=== PATIENT | female | born 1985 | race African-American/Black ===

== ENCOUNTER 2024-09-07 15:39 | Emergency (ER) | payer OTHER ==
[2024-09-07 15:54] VITALS: BP 118/83; PULSE 84; RESP 18; TEMP 98.8; BMI 27.8
[2024-09-07 17:56] LABS: BASO % 0.5 % (0-2.0); HEMATOCRIT 39.7 % (32.4-45.2); HEMOGLOBIN 13.1 GM/dL (10.7-15.3); LYMPH % 40.4 % (8-40); MCH 27.7 pg (25.7-33.7); MEAN CELL VOLUME 83.9 fl (80-96); MEAN PLT VOLUME 7.1 fl (7.5-11.1); MONO % 7.2 % (3.8-10.2); NEUT % 50.9 % (42.8-82.8); PLATELET COUNT 249 10^3/uL (134-434); RBC 4.73 M/mm3 (3.60-5.2); RDW 17.2 % (11.6-15.6); WHITE BLOOD COUNT 9.5 K/mm3 (4.0-10.0)
[2024-09-07 18:00] LABS: EPI CELLS 26 /uL (0-25.1); HYALINE CASTS 0 /uL (0-3.1); URINE APPEARANCE CLEAR; URINE BACTERIA 301 /uL (0-1359); URINE BILIRUBIN NEGATIVE (NEGATIVE); URINE COLOR YELLOW; URINE GLUCOSE (UA) NEGATIVE (NEGATIVE); URINE KETONE TRACE (NEGATIVE); URINE LEUK ESTERASE TRACE (NEGATIVE); URINE NITRITE NEGATIVE (NEGATIVE); URINE PROTEIN NEGATIVE (NEGATIVE); URINE RBC 21 /uL (0-23.9); URINE WBC 27 /uL (0-25.8)
[2024-09-07 20:46] LABS: POTASSIUM 3.6 mmol/L (3.5-5.1)
[2024-09-07 20:48] LABS: CALCIUM 9.1 mg/dL (8.5-10.1)
[2024-09-07 20:49] LABS: ALBUMIN 3.9 g/dl (3.4-5.0); BLOOD UREA NITROGEN 10.9 mg/dL (7-18)
[2024-09-07 20:52] LABS: CREATININE 0.7 mg/dL (0.55-1.3)
[2024-09-07 20:53] LABS: BILIRUBIN,TOTAL 0.4 mg/dL (0.2-1)
[2024-09-07 20:54] LABS: TOT PROT 7.8 g/dl (6.4-8.2)
== END 2024-09-07 18:56 | disposition left against medical advice (07) ==
LOC: JER 15:39
DX: N93.9 Abnormal uterine and vaginal bleeding, unspecified (principal); R07.2 Precordial pain; R10.31 Right lower quadrant pain; R20.0 Anesthesia of skin; M79.604 Pain in right leg; M79.605 Pain in left leg
CPT/HCPCS: 36415; 80053; 81003; 84484; 84703; 85025; 86803; 87086; 99283-25